=== PATIENT | male | born 1995 | race Caucasian/White ===

== ENCOUNTER 2017-09-12 00:56 | Emergency (ER) | payer BC ==
[2017-09-12] MEDS ORDERED: Meclizine 25 MG Tab PO ONE (01:08)
[2017-09-12 01:48] LABS: CHLORIDE,CL 101 mmol/L (98-107); SODIUM,NA 140 mmol/L (136-145)
--- NOTE | 2017-09-12 02:35 | EDM.PDOC ---
ED HPI GENERAL MEDICAL PROBLEM - General Chief Complaint: General Stated Complaint: "when I tip my head to side I get dizzy" Time Seen by Provider: 09/12/17 01:30 Source of Information: Reports: Patient History Limitations: Reports: No Limitations - History of Present Illness INITIAL COMMENTS - FREE TEXT/NARRATIVE: Patient comes to ER complaining of getting dizzy sometimes when he tips his head down/to side. Describes vertigo like sensation. No recent colds/URIs. No ear pain. No emesis/nausea. No history of similar problems in past. No headache. No vision change. Taking Dramamine helps. No other complaints. Has history of asthma - Related Data Allergies Allergy/AdvReac Type Severity Reaction Status Date / Time No Known Allergies Allergy Verified 09/12/17 00:57 Home Meds: Home Meds Carbamide Peroxide [Debrox] 15 ml OT ASDIRECTED #1 bottle 09/12/17 [Rx] Hydrocort/Neomycin/Polymyxin B [Cortisporin Otic Soln] 10 ml .XX ASDIRECTED #1 bottle 09/12/17 [Rx] Past Medical History Respiratory History: Reports: Asthma Social & Family History - Tobacco Use Years of Tobacco use: 10 Packs/Tins Daily: 0.5 Second Hand Smoke Exposure: Yes - Caffeine Use Caffeine Use: Reports: Soda - Recreational Drug Use Recreational Drug Use: No ED ROS GENERAL - Review of Systems Review Of Systems: ROS reveals no pertinent complaints other than HPI. ED EXAM, GENERAL - Physical Exam Exam: See Below Exam Limited By: No Limitations General Appearance: Alert, WD/WN, No Apparent Distress Eye Exam: Bilateral Eye: EOMI, Nystagmus (mild, triggered by head rotation), PERRL Ears: Other (Both ear canals completely blocked by large amount of impacted cerumen) Nose: Normal Inspection Throat/Mouth: Normal Inspection, Normal Voice, No Airway Compromise Head: Atraumatic, Normocephalic Neck: Normal Inspection, Supple, Non-Tender, Full Range of Motion. No: Lymphadenopathy (L), Lymphadenopathy (R) Respiratory/Chest: No Respiratory Distress, Lungs Clear, Normal Breath Sounds, No Accessory Muscle Use Cardiovascular: Regular Rate, Rhythm GI/Abdominal: Soft, Non-Tender Extremities: Normal Capillary Refill Neurological: Alert, Oriented, Normal Cognition, Normal Gait, No Motor/Sensory Deficits Psychiatric: Normal Affect, Normal Mood Skin Exam: Warm, Dry, Intact, Normal Color Course - Vital Signs Last Recorded V/S: Last Vital Signs Temp 36.7 C 09/12/17 01:00 Pulse 91 09/12/17 01:00 Resp 16 09/12/17 01:00 BP 121/91 H 09/12/17 01:00 Pulse Ox 97 09/12/17 01:00 - Orders/Labs/Meds Labs: Laboratory Tests 09/12/17 Range/Units 01:30 Sodium 140 (136-145) mmol/L Potassium 3.8 (3.5-5.1) mmol/L Chloride 101 (98-107) mmol/L Carbon Dioxide 30.5 (21.0-32.0) mmol/L BUN 14 (7-18) mg/dL Creatinine 0.89 (0.51-1.17) mg/dL Est Cr Clr Drug Dosing 138.66 mL/min Estimated GFR (MDRD) > 60 mL/min Glucose 90 (74-106) mg/dL Calcium 9.0 (8.5-10.1) mg/dL Meds: Medications Discontinued Medications Generic Name Dose Route Start Last Admin Trade Name Freq PRN Reason Stop Dose Admin Meclizine HCl 25 mg 09/12/17 01:08 09/12/17 01:15 Antivert PO 09/12/17 01:09 25 mg ONETIME ONE Administration - Re-Assessments/Exams Free Text/Narrative Re-Assessment/Exam: Patient diagnosed with vertigo. Meclizine or Dramamine recommended along with observation for changes over the next few days. He did have a significant amount of impacted cerumen bilaterally and cannot rule out that this is contributing to his symptoms. Nursing staff soaked his ears for an hour and were unable to get any of the wax removed. Plan at discharge was for him to use daily debrox and make an appointment for thorough ear irrigation/cleaning this week. He is to follow up if symptoms worsen or if they do not improve within a week. Departure - Departure Time of Disposition: 03:30 Disposition: Home, Self-Care 01 Condition: Good Clinical Impression: Vertigo, Impacted cerumen of both ears - Discharge Information Prescriptions: Carbamide Peroxide [Debrox] 15 ml OT ASDIRECTED #1 bottle Hydrocort/Neomycin/Polymyxin B [Cortisporin Otic Soln] 10 ml .XX ASDIRECTED #1 bottle Instructions: Earwax Buildup, Adult, Vertigo, [id number] Referrals: Smita Huang PA [Primary Care Provider] - Forms: ED Department Discharge Additional Instructions: Use Debrox to help soften cerumen and make it easier to flush ears/remove wax. Use 5-10 drops twice daily for 4 days prior to scheduled wax removal. For ear wax prevention use Debrox twice weekly. Avoid ear plugs and Qtips as discussed in order to prevent future impacted ear wax. Use Cortisporin ear drops after ear wax removal to help prevent Otitis Externa from trauma to ear canal due to cleaning attempts. Meclizine or Dramamine may be helpful in reducing dizziness symptoms as discussed. If vertigo/light-headed episodes do not resolve with time/removal of ear wax, follow up for re-examination. You may need further testing as we discussed in the ER.
== END 2017-09-12 03:33 | disposition home or self-care (01) ==
LOC: LL.ED 00:56
DX: H61.23 Impacted cerumen, bilateral (principal)
CPT/HCPCS: 36415; 80048; 99283; A9270-GY